=== PATIENT | female | born 1945 | race Caucasian/White ===

== ENCOUNTER 2022-06-22 02:32 | Emergency (ER) | payer MEDICARE ==
[~2022-06-22] VITALS: Ht 167.6 cm; Wt 110.2 kg
[2022-06-22 04:23] LABS: Influenza A, PCR NEGATIVE (NEGATIVE); Influenza B, PCR NEGATIVE (NEGATIVE); Resp Syncytial Virus, PCR NEGATIVE (NEGATIVE)
[2022-06-22 04:24] LABS: SARS-Cov-2 (COVID-19) PCR, MMC POSITIVE (NEGATIVE)
[2022-06-22] MEDS ORDERED: ONDA4ODT MM (04:31)
== END 2022-06-22 05:10 | disposition home or self-care (01) ==
LOC: ER 02:32
PROVIDERS: Student in an Organized Health Care Education/Training Program
DX: U07.1 COVID-19 (principal); Z88.2 Allergy status to sulfonamides; Z91.030 Bee allergy status; Z91.014 Allergy to mammalian meats; Z88.8 Allergy status to other drugs, medicaments and biological substances; Z91.018 Allergy to other foods
CPT/HCPCS: 0241U; A9270

== ENCOUNTER → 2023-06-21 | Outpatient (CLI) | payer MEDICARE ==
[~2023-06-21] MED LIST: ONDA4ODT MM
[2023-06-21 10:13] LABS: Source, Urine Clean Catch
[2023-06-21 12:48] LABS: Bilirubin, Urine Neg (Neg); Blood, Urine Neg (Neg); Color, Urine Yellow (P-Yellow); Glucose Qualitative, Urine Neg (Neg); Ketones, Urine Neg (Neg); Leukocyte Esterase, Urine Neg (Neg); Nitrite, Urine Neg (Neg); Protein, Urine Neg (Neg); Specific Gravity, Urine 1.025 (1.003-1.022); Urobilinogen, Urine NORM (Normal)
[2023-06-21 13:00] LABS: Appearance, Urine Clear (Clear)
== END ==
LOC: LAB SHORT 10:11
PROVIDERS: Nurse Practitioner Family
DX: Z13.6 Encounter for screening for cardiovascular disorders (principal)
CPT/HCPCS: 81003